=== PATIENT | female | born 1960 | race Caucasian/White ===

== ENCOUNTER 2016-11-04 10:42 | Emergency (ER) | payer BC, SELFPAY ==
[~2016-11-04 10:42] MED LIST: B121000P IM; CELEXA20 PO; CIP5 PO; COMP10B PO; FERROUS SULF325 M1 PO; NORCO1 TA2 PO; NORCO1 TAB PO; OXALIPLATIN IV; PRILO PO; V5 PO; ZOFRAN8 PO
[2016-11-04 11:26] LABS: BASOPHILS 0.2 %; BASOPHILS ABSOLUTE 0.01 10/3/uL (0.0-0.16); EOSINOPHILS 5.8 %; EOSINOPHILS ABSOLUTE 0.27 10/3/uL (0.0-0.53); HEMATOCRIT 34.1 % (36.0-48.0); IMMATURE GRANULOCYTES 0.2 %; IMMATURE GRANULOCYTES ABSOLUTE 0.01 10/3/uL (0.0-0.11); LYMPHOCYTES ABSOLUTE 0.37 10/3/uL (0.67-4.30); MEAN CORPUS HGB CONC 32.3 g/dL (32.0-36.0); MEAN CORPUSCULAR HEMOGLOB 26.9 pg (26.0-34.0); MEAN CORPUSCULAR VOLUME 83.4 fL (80-100); MEAN PLATELET VOLUME 9.5 fL (9.2-13.0); MONOCYTES 11.9 %; MONOCYTES ABSOLUTE 0.55 10/3/uL (0.21-1.20); NEUTROPHILS 73.9 %; NEUTROPHILS ABSOLUTE 3.42 10/3/uL (2.02-8.40); PLATELET COUNT 213 10/3/uL (150-400); RBC DISTRIBUTION WIDTH 13.5 % (12.0-16.0); RED CELL COUNT 4.09 10/6/uL (4.0-5.6); WHITE BLOOD CELLS 4.6 10/3/uL (4.5-10.5)
[2016-11-04 11:27] LABS: MANUAL DIFF NO %
[2016-11-04 11:35] LABS: ASCORBIC ACID (UR NOT ORDER) 20 (NEG); BILIRUBIN, URINE NEGATIVE (NEG); ER URINALYSIS TAT 0 Hrs 10 Mins; KETONE, URINE NEGATIVE (NEG); LEUKOCYTE ESTERASE(NOT OR SMALL (NEG); NITRITE (URINE) NEG (NEG); WBC (NOT ORDERED) (RFLEX) 27 (0-5)
[2016-11-04 11:42] LABS: A/G RATIO 0.8 (0.7-1.9); ALBUMIN 3.2 G/DL (3.5-5.0); CALCIUM, SERUM 9.1 MG/DL (8.5-10.4); CHLORIDE, SERUM 104 MMOL/L (96-112); CO2 (CARBON DIOXIDE) 26 MMOL/L (24-34); CREATININE 0.99 MG/DL (0.55-1.02); GFR AFRICAN AMERICAN 73 ML/MIN (>=60); GFR NON AFRICAN AMERICAN 63 ML/MIN (>=60); GLOBULIN 3.8 G/DL (2.5-4.1); GLUCOSE, SERUM 101 MG/DL (60-99); POTASSIUM, SERUM 3.9 MMOL/L (3.5-5.3); SGOT(AST) 93 U/L (5-40); SGPT(ALT) 25 U/L (5-65); SODIUM, SERUM 140 MMOL/L (135-148)
[2016-11-04 11:43] LABS: ALKALINE PHOSPHATASE 275 U/L (45-117); BUN (BLOOD UREA NITROGEN) 9 MG/DL (6-23)
[2016-11-24] MEDS ORDERED: REM15 PO (14:28)
[2017-01-07] MEDS ORDERED: MSCONT15 (11:28)
[2017-01-07] MEDS ORDERED: PR25 PO (11:29)
[2017-01-24] MEDS ORDERED: REMERON30 MG PO (11:33)
[2017-01-24] MEDS ORDERED: REM15 PO (11:33)
[2017-01-24] MEDS ORDERED: CELEXA20 PO (11:33)
[2017-01-24] MEDS ORDERED: MSCONTIN PO (11:33)
[2017-01-24] MEDS ORDERED: NORCO1 TAB PO (11:34)
[2017-01-24] MEDS ORDERED: BIST PO (11:35)
[2017-01-24] MEDS ORDERED: V5 PO (11:36)
[2017-01-24] MEDS ORDERED: B121000P IM (11:36)
[2017-01-24] MEDS ORDERED: STOOL SOFTENER OTC PO (11:36)
[2017-01-24] MEDS ORDERED: PEP20 PO (11:37)
[2017-01-26] MEDS ORDERED: QUESLITE PO (13:59)
== END 2016-11-04 13:17 | disposition home or self-care (01) ==
LOC: ER 10:42
PROVIDERS: Emergency Medicine
DX: N39.0 Urinary tract infection, site not specified (principal); R31.9 Hematuria, unspecified; C18.9 Malignant neoplasm of colon, unspecified; K21.9 Gastro-esophageal reflux disease without esophagitis; F41.9 Anxiety disorder, unspecified; D64.9 Anemia, unspecified
CPT/HCPCS: 80053; 81001; 83690; 85025; 87086; 99283